=== PATIENT | female | born 1935 | race Caucasian/White ===

== ENCOUNTER → 2016-12-16 | Outpatient (CLI) | payer OTHER ==
[~2016-12-16] VITALS: Ht 152.4 cm; Wt 70.3 kg
[~2016-12-16] MED LIST: ASPIRIN EC81 M1 PO; ATENOLOL 50 MG50 M1 PO; AZOPT OPHTH1 %/10 M1 OP; COQ1050 MG PO; KLOR-CON 1010 MEQ PO; LEVOTHROID88 MCG PO; LEVOTHYROXIN0.088 MG PO; MELOXICAM7.5 MG PO; MULTI-VITAMIN1 EAC5 PO; NORCO 5-325 TA1 EACH PO; PRILOSEC 20 MG20 MG PO; SIMVASTATIN80 MG PO; TENORMIN50 MG PO; TRAMADOL 50 MG50 MG PO; TRAZODONE 150150 M1 PO; TRIAMTERENE-HC1 EAC1 PO; VITAMIN D1000 UNI1 PO; VOLTAREN GEL 1100 G1 TOP; XALATAN2.5 ML OPHTHALMIC; [UNRECOGNIZED DRUG - OTHER]
--- NOTE | ~2016-12-16 | P ---
[facility] [place] [address] PROCEDURE REPORT Name: JAMMIE HERRERA Room #: REG [facility]#: [id number] Admission: 12/16/16 Attend Phys: Alin Thompson Discharge: Date of : 35 Report #: [id number] THIS REPORT FOR: //name// CC: Alin Charles MD DATE OF SERVICE: 12/16/2016 PROCEDURE PERFORMED: Upper endoscopy with biopsies and esophageal dilation. HISTORY OF PRESENT ILLNESS: The patient is an 81-year-old female with a history of gastroesophageal reflux disease, taking Prilosec twice a day. She does report a globus sensation, intermittent nausea and vomiting, intermittent heartburn symptoms. DESCRIPTION OF PROCEDURE: The risks and benefits of the procedure were explained to the patient, those risks including but not limited to bleeding, perforation, the risk of sedation. She understood these risks and gave informed consent. Sedation was given using propofol per anesthesia. Next, using a standard [employer] upper endoscope, the scope was placed in the patient's mouth and advanced under direct vision through the esophagus, stomach and into the second portion of the duodenum. The esophagus was normal throughout. The GE junction was normal. Upon entering the stomach, a small hiatal hernia was noted. Overall, the gastric mucosa was normal. Because of her symptoms, biopsies were obtained to rule out the possibility of H. pylori. The pylorus was normal and patent. The duodenal bulb, first and second portion were all normal. Biopsies were also obtained to rule out the possibility of celiac sprue. The scope was then withdrawn and the procedure terminated. The patient tolerated the procedure well. IMPRESSION: 1. Small hiatal hernia. 2. Otherwise, normal upper endoscopy. RECOMMENDATIONS: 1. Await biopsy results. 2. Continue PPI therapy. 3. We will add Zofran on a p.r.n. basis. Thank you for allowing me to participate in her care. By: 0846 [id number] Alin Garcia MD /nt
--- NOTE | ~2016-12-16 | S ---
[facility] [place] [address] SURGICAL PATH RPT PROCEDURE Name: RANJANA HERRERA [id number] Admission: 12/16/16 Date of : 35 Discharge: Report #: [id number] Path Case #: [id number] PATHOLOGY REPORT COLLECTION DATE: 12/16/2016 RECEIVED DATE: 12/16/2016 SUBMITTING PHYS: Dr. Alin Garcia OTHER PHYS: Dr Charo Charles SPECIMEN(S) RECEIVED: A.Duodenal bx B.Gastric bx * * * * * * * * * * * * FINAL DIAGNOSIS: A. Small bowel, duodenum, biopsy: - No pathologic diagnosis. - Normal villous architecture. B. Stomach, biopsy: - Mild chronic inflammation, non-specific. - No evidence of Helicobacter pylori on immunoperoxidase stain. PATHOLOGIST: Dolly Lyon M.D. REPORT ELECTRONICALLY SIGNED BY: Dolly Lyon M.D. DATE/TIME: 12/20/2016 11:47 * * * * * * * * * * * * GROSS PATHOLOGY: A. Received in formalin labeled "Ranjana Gloria, duodenal, R/O sprue," are three segments of cook soft tissue measuring 0.9 x 0.8 x 0.2 cm in aggregate dimensions and ranging from 0.4 to 0.6 cm in maximum dimension. The specimen is submitted entirely in cassette A1. B. Received in formalin labeled "Ranjana Gloria, gastric biopsy, R/O H. pylori," are three segments of cook soft tissue measuring 0.8 x 0.8 x 0.2 cm in aggregate dimensions and ranging from 0.2 to 0.5 cm in maximum dimension. The specimen is submitted entirely in cassette B1. (CAA; 12/17/2016) CLINICAL HISTORY: Pre-op diagnosis: Abdominal pain, nausea Post-op diagnosis: R/O sprue, R/O H. pylori INITIAL CPT CODE(S): A; [address] [address] SURGICAL PATH RPT PROCEDURE Name: MARIYA HERRERAGEOVANNY Callahan Room #: REG [facility]#: [id number] Admission: 12/16/16 Date of : 35 Discharge: Report #: [id number] Path Case #: [id number] B; [id number], [id number] Professional services performed by [facility] at [address], [place] [address] Technical services performed by [facility] at [address] [place] [address], [facility] [address] [address]. [facility] [address] [place] [id number] PHONE: [phone] DIRECTOR: Gurmeet Olivarez M.D. * * * END OF REPORT * * *
== END | disposition home or self-care (01) ==
LOC: GI 06:57 → EDSTATUS 11:46
DX: K29.50 Unspecified chronic gastritis without bleeding (principal); K44.9 Diaphragmatic hernia without obstruction or gangrene; I10 Essential (primary) hypertension; E78.00 Pure hypercholesterolemia, unspecified; Z98.41 Cataract extraction status, right eye; Z98.42 Cataract extraction status, left eye; Z98.890 Other specified postprocedural states; Z87.891 Personal history of nicotine dependence
CPT/HCPCS: 62110; 62900

== ENCOUNTER 2017-01-06 15:38 | Inpatient (IN) | payer OTHER ==
[~2017-01-06] VITALS: Ht 152.4 cm; Wt 70.3 kg
[2017-01-06 15:45] VITALS: BP 110/71
[2017-01-06 16:52] LABS: HEMATOCRIT 37.7 % (37.0-47.0); HEMOGLOBIN 12.7 gm/dL (12.0-15.0); MANUAL DIFF YES; MCH 28.8 pg (26.0-34.0); MCHC 33.7 g/dL (28.0-37.0); MCV 85.5 fL (80.0-100.0); PLATELET COUNT 177 thou/uL (150-400); RBC 4.41 mil/uL (4.20-5.00); RDW 14.4 % (10.5-14.5); WBC 17.6 thou/uL (4.0-11.0)
[2017-01-06 17:02] LABS: CALCIUM 9.3 mg/dL (8.5-10.1); CREATININE 1.1 mg/dL (0.6-1.0); POTASSIUM 3.9 mmol/L (3.5-5.1)
[2017-01-06 17:07] LABS: ALBUMIN 3.9 g/dL (3.4-5.0); TOTAL BILIRUBIN 0.6 mg/dL (<0.1-1.0); TOTAL PROTEIN 7.4 g/dL (6.4-8.2)
[2017-01-06 17:13] LABS: ABSOLUTE NEUTROPHILS 15.5 thou/uL (1.4-8.2); TOTAL CELL COUNT 100
[2017-01-06 17:43] LABS: URINE BILIRUBIN 1+ (Negative); URINE BLOOD NEGATIVE (Negative); URINE COLOR YELLOW; URINE GLUCOSE-RANDOM* NEGATIVE (Negative); URINE KETONES 1+ (Negative); URINE LEUKOCYTES-REFLEX NEGATIVE (Negative); URINE PROTEIN (DIPSTICK) NEGATIVE (Negative); URINE SPECIFIC GRAVITY 1.025 (1.003-1.035)
[2017-01-06 17:45] LABS: ICTOTEST (BILI CONFIRMATORY) Negative (Negative)
[2017-01-06 17:59] VITALS: BP 122/75
[2017-01-06 18:27] VITALS: BP 106/54
[2017-01-06 20:00] VITALS: BP 100/47
[2017-01-07 04:00] VITALS: BP 87/39
[2017-01-07 04:59] LABS: HEMATOCRIT 33.5 % (37.0-47.0); HEMOGLOBIN 11.1 gm/dL (12.0-15.0); MCH 28.8 pg (26.0-34.0); MCHC 33.2 g/dL (28.0-37.0); MCV 86.6 fL (80.0-100.0); RBC 3.86 mil/uL (4.20-5.00); RDW 14.5 % (10.5-14.5); WBC 14.2 thou/uL (4.0-11.0)
[2017-01-07 05:13] LABS: CALCIUM 8.7 mg/dL (8.5-10.1); CREATININE 1.3 mg/dL (0.6-1.0); POTASSIUM 4.1 mmol/L (3.5-5.1)
[2017-01-07 07:39] VITALS: BP 92/30
[2017-01-07 15:57] VITALS: BP 93/46
[2017-01-07 20:00] VITALS: BP 109/38
[2017-01-08 04:30] VITALS: BP 117/42
[2017-01-08 08:56] LABS: HEMATOCRIT 30.5 % (37.0-47.0); HEMOGLOBIN 10.4 gm/dL (12.0-15.0); MCH 29.1 pg (26.0-34.0); MCV 85.8 fL (80.0-100.0); RBC 3.55 mil/uL (4.20-5.00); RDW 14.1 % (10.5-14.5); WBC 8.8 thou/uL (4.0-11.0)
[2017-01-08 09:01] LABS: CALCIUM 8.3 mg/dL (8.5-10.1); CREATININE 1.2 mg/dL (0.6-1.0); POTASSIUM 3.8 mmol/L (3.5-5.1)
[2017-01-08 09:16] VITALS: BP 122/55
[2017-01-08] MEDS ORDERED: FLAGYL500 MG PO (13:58)
[2017-01-08] MEDS ORDERED: CIPRO500 MG PO (13:58)
[2017-01-08 14:35] VITALS: BP 122/55
== END 2017-01-08 15:12 | disposition home or self-care (01) | DRG 392 ==
LOC: ER 15:38 → 4E 17:29 → EROBS 17:29 → 4E 18:01
PROVIDERS: Hospitalist; Physician Assistant
DX: K57.92 Diverticulitis of intestine, part unspecified, without perforation or abscess without bleeding (principal); I10 Essential (primary) hypertension; E78.5 Hyperlipidemia, unspecified; E03.9 Hypothyroidism, unspecified; K21.9 Gastro-esophageal reflux disease without esophagitis; D72.829 Elevated white blood cell count, unspecified; Z87.891 Personal history of nicotine dependence; Z98.42 Cataract extraction status, left eye; Z98.41 Cataract extraction status, right eye; Z88.0 Allergy status to penicillin; Z91.041 Radiographic dye allergy status; Z79.899 Other long term (current) drug therapy
CPT/HCPCS: 10084

== ENCOUNTER → 2018-01-26 | Outpatient (CLI) | payer OTHER ==
[~2018-01-26] VITALS: Ht 157.5 cm; Wt 71.5 kg
[~2018-01-26] MED LIST changes: +CIPRO500 MG PO; +FLAGYL500 MG PO
--- NOTE | ~2018-01-26 | HPC ---
[facility] [address] [place] [address] PAIN MANAGEMENT CONSULTATION Name: JAMMIE HERRERA [place] Room #: [facility] Erik#: [id number] Admission: 01/26/18 Attend Phys: Daniel Calzada DO Discharge: Date of : 35 Report #: [id number] THIS REPORT FOR: //name// CC: Humza Calzada DATE OF SERVICE: 01/28/2018 The patient is an 82-year-old female. She was prior seen nearly 3 years ago, last visit was 03/2015. She was given epidural injections at that time, both L5-S1 (April 10) and L3-L4 (April 24) with excellent improvement of baseline pain. Pain has gradually begun to recur. She denies antecedent trauma and overuse. States pain returned in low back, left buttock and leg with paresthesia and weakness in the leg. She does note, however, that she has been helping her a great deal, who has become more disabled. He has fallen several times and lifting him up may have exacerbated some of her pain. She does take meloxicam and tramadol through her general practitioner with nominal efficacy. She denies bowel or bladder continence changes, but notes pain does interfere with function. She describes burning and crushing pain. She rates a 4-5 on a VAS, exacerbated with moving, sitting or lying down. REVIEW OF SYSTEMS: Complete review of systems is attached to the chart and gone over with the patient. She has significant visual acuity decrease, hypothyroid, some chronic anxiety for which she takes trazodone, hypertension for which she takes atenolol, multiple eyedrops. Gastroesophageal reflux for which she takes omeprazole, triamterene/hydrochlorothiazide for hypertension, and dyslipidemia for which she takes simvastatin. PHYSICAL EXAMINATION: Reveals a 5 feet 2 inches, 157-pound female, BMI is 28.8 kg/m2. Blood pressure 145/68, pulse 52, respirations 18. Cranial nerves 2-12 are grossly intact. Again, visual acuity is diminished. She is alert and oriented to person, place and time. Thyroid is modestly enlarged. Rises from the chair using the armrest. Gait is antalgic. Lumbar flexion is limited to 80 degrees. Tenderness over the SI joints. KWESI test is negative. Straight leg raise is equivocal bilaterally. Decreased hip flexion strength and lower extremity extension strength bilaterally. Left side maybe a little worse than the right. DIAGNOSTIC STUDIES: Again is somewhat dated. MRI from 03/09/2010 notes grade 1 anterolisthesis at L4-L5, facet degenerative changes and neural foraminal narrowing at L4-L5 at 0.6 cm. Somewhat more recent MRI of the lumbar spine from 2012 again re-demonstrates disk bulging and facet hypertrophy at L3-L4 and L5-S1 with grade 1 anterolisthesis. ASSESSMENT: Symptomatic lumbar radiculopathy by clinical exam and history, who has done well with prior epidural injections. [address] [address] PAIN MANAGEMENT CONSULTATION Name: JAMMIE HERRERA Room #: REG [facility] [place]#: [id number] Admission: 01/26/18 Attend Phys: Daniel Calzada DO Discharge: Date of : 35 Report #: [id number] RECOMMENDATIONS: Discussion with the patient today about therapeutic option. We have elected to seek authorization for lumbar epidural injection at L3-L4. Continue meloxicam, physical therapy. Incidentally, the patient does note that she had 90% relief following the prior injections for greater than a year. <ELECTRONICALLY SIGNED> By: Daniel Calzada DO 01/29/18 0706 1532 2344 Daniel Calzada DO /nt
[2018-01-26 11:01] VITALS: BP 145/68
== END ==
LOC: PAIN 07:14
DX: M54.16 Radiculopathy, lumbar region (principal)

== ENCOUNTER → 2018-02-02 | Outpatient (CLI) | payer OTHER ==
[~2018-02-02] VITALS: Ht 154.9 cm; Wt 71.2 kg
--- NOTE | ~2018-02-02 | HPC ---
[facility] [place] [address] PAIN MANAGEMENT CONSULTATION Name: JAVIERJAMMIE M Room #: REG [facility] Erik#: [id number] Admission: 02/02/18 Attend Phys: Daniel Calzada DO Discharge: Date of : 35 Report #: [id number] THIS REPORT FOR: //name// CC: Humza Calzada DATE OF SERVICE: 02/02/2018 The patient is a delightful 82-year-old female, long treated for symptomatic lumbar radiculopathy secondary to spinal stenosis, last seen in the Pain Clinic on 01/26/2018. She was authorized for epidural injection under fluoroscopy at L3-L4. She returns to the Pain Clinic today. Pain continues to be problematic in bilateral L3 radicular pain pattern. She also has DJD bilateral knees. She wished to proceed with epidural injections we discussed at last visit. ASSESSMENT: Symptomatic lumbar radiculopathy secondary to spinal stenosis. PROCEDURE: Lumbar epidural injection under fluoroscopy. PROCEDURE NOTE: After both written and informed consent to include risk of spinal cord damage, increased pain, weakness and dural puncture, the patient was taken to the fluoroscopy suite, placed in the prone position. After sterile prep and drape, a skin wheal with lidocaine was raised. A 22-gauge epidural Tuohy needle was inserted in the midline at L3-L4 with good loss to resistance. Negative aspiration for cerebrospinal fluid or blood was noted. Then 1 mL of Omnipaque under biplanar fluoroscopy showed good spread within the epidural space. This was followed with 80 mg of triamcinolone plus 1 mL of 1.5% preservative-free Xylocaine, 0.5 mL Xylocaine was then injected to flush the needle; it was removed. The patient was monitored for an appropriate period of time and discharged in good and stable condition. <ELECTRONICALLY SIGNED> By: Daniel Calzada DO 02/05/18 0659 1457 0051 Daniel Calzada DO /nt
[2018-02-02 14:13] VITALS: BP 140/60
== END | disposition home or self-care (01) ==
LOC: PAIN 07:02
DX: M48.061 Spinal stenosis, lumbar region without neurogenic claudication (principal); M54.16 Radiculopathy, lumbar region; K57.92 Diverticulitis of intestine, part unspecified, without perforation or abscess without bleeding; Z88.0 Allergy status to penicillin; Z91.041 Radiographic dye allergy status; Z87.891 Personal history of nicotine dependence; Z79.82 Long term (current) use of aspirin; Z79.899 Other long term (current) drug therapy

== ENCOUNTER → 2018-02-26 | Outpatient (CLI) | payer OTHER ==
[~2018-02-26] VITALS: Ht 157.5 cm; Wt 72.8 kg
--- NOTE | ~2018-02-26 | HPC ---
[facility] [place] [address] PAIN MANAGEMENT CONSULTATION Name: JAMMIE HERRERA [facility] [id number] Admission: 02/26/18 Attend Phys: Alex Varma MD Discharge: Date of : 35 Report #: [id number] THIS REPORT FOR: //name// CC: Humza Varma DATE OF SERVICE: 02/26/2018 Followup visit for lumbar radiculopathy with spondylolisthesis, spinal stenosis and neural foraminal narrowing. HISTORY OF PRESENT ILLNESS: This patient is a patient of Dr. Daniel Calzada. He saw her last on 02/02/2018. He gave her an epidural injection at L2-L3. She had previously received nice response at L4-L5. I believe that his thinking was along the lines of her dermatomal distribution of pain. I have reviewed all of her previous x-rays and the ones that showed the best results were performed at the level noted on her MRI where there is a diffuse annular bulging and bilateral facet and ligamentum flavum hypertrophy causing marked encroachment on the neural foramen at L4-L5. Similar findings are at L5-S1, but not quite as bad. She did not get any relief with the higher injection, so I have offered her one more injection. It is possible that maybe she is at a point where the epidurals are no longer helpful. She is on no blood thinners. She could proceed today with an injection, although we need to do a preauthorization first. She scores her pain as 6-7/10. A brushing, burning, crushing sensation that radiates from her low back down into her buttocks and both thighs. Sensation is intact. She has no focal weakness. She has a slight fall risk, but has not fallen in the last 3 months. She does not receive opioid medications, therefore not on an agreement. BMI is 29.3. Blood pressure 125/52, heart rate 52, respirations 17. Tenderness across the low back, pain with forward flexion and extension of the spine. Positive straight leg raising discomfort noted on the left. IMPRESSION: Chronic low back pain with radiculopathy, left worse than right, but bilateral. RECOMMENDATIONS: Epidural injection at L4-L5 under fluoroscopic guidance. The patient is instructed to continue remaining as active as possible with [address] [address] PAIN MANAGEMENT CONSULTATION Name: JAVIERJAMMIE M Room #: REG CL Erik#: [id number] Admission: 02/26/18 Attend Phys: Alex Varma MD Discharge: Date of : 35 Report #: [id number] stretching and walking. We will see her back in the clinic once we have received preauthorization. By: 1158 1811 Alex Varma MD /nt
[2018-02-26 10:58] VITALS: BP 125/52
== END ==
LOC: PAIN 06:25
DX: M54.16 Radiculopathy, lumbar region (principal); M48.062 Spinal stenosis, lumbar region with neurogenic claudication; M43.16 Spondylolisthesis, lumbar region; G89.29 Other chronic pain

== ENCOUNTER → 2018-03-05 | Outpatient (CLI) | payer OTHER ==
[~2018-03-05] VITALS: Ht 152.4 cm; Wt 72.7 kg
--- NOTE | ~2018-03-05 | HPC ---
[facility] [place] [address] PAIN MANAGEMENT CONSULTATION Name: JAMMIE HERRERA [facility] [id number] Admission: 03/05/18 Attend Phys: Alex Varma MD Discharge: Date of : 35 Report #: [id number] THIS REPORT FOR: //name// CC: Humza Varma DATE OF SERVICE: 03/05/2018 SUBJECTIVE: Followup visit for lumbar radiculopathy. The patient returns today for epidural steroid injection. She was seen on 02/26 and required preauthorization. Plan today was to perform a left paramedian L4-L5 epidural injection as described thoroughly in my note 1 week ago. She is on no blood thinners. We reviewed the procedure, risks and benefits and she is anxious to proceed. IMPRESSION: Chronic low back pain with radiculopathy, bilateral, left worse than right. Lumbar spondylolisthesis and spinal stenosis with neural foraminal narrowing. DESCRIPTION OF PROCEDURE: She was taken to fluoroscopic suite, placed prone, skin prepped with ChloraPrep. Skin anesthetized left of midline at L4-L5. A 20-gauge Tuohy epidural needle advanced at first attempt into the epidural space with loss of resistance. No blood nor CSF aspirated. A 1 mL of Omnipaque injected with good spread of dye observed along the left side of the epidural space and in the lateral recesses followed by 3 mL of 0.5% lidocaine mixed with 80 mg of triamcinolone. She tolerated the procedure well and was observed for 45 minutes and discharged. Follow up as needed. By: 1352 2115 Alex Varma MD /nt
[2018-03-05 13:10] VITALS: BP 134/42
== END | disposition home or self-care (01) ==
LOC: PAIN 06:55
DX: M54.16 Radiculopathy, lumbar region (principal); G89.29 Other chronic pain; M43.16 Spondylolisthesis, lumbar region; M48.061 Spinal stenosis, lumbar region without neurogenic claudication; Z87.891 Personal history of nicotine dependence; Z88.0 Allergy status to penicillin; Z91.041 Radiographic dye allergy status; Z79.82 Long term (current) use of aspirin; Z79.899 Other long term (current) drug therapy

== ENCOUNTER → 2018-12-13 | Outpatient (CLI) | payer OTHER ==
[~2018-12-13] VITALS: Ht 154.9 cm; Wt 70.3 kg
[2018-12-13 07:55] VITALS: BP 155/57
[2018-12-13 08:05] LABS: HEMATOCRIT 35.2 % (37.0-47.0); HEMOGLOBIN 11.7 gm/dL (12.0-15.0); MCHC 33.3 g/dL (28.0-37.0); RBC 3.91 mil/uL (4.20-5.00); RDW 14.4 % (10.5-14.5); WBC 6.9 thou/uL (4.0-11.0)
[2018-12-13 08:11] LABS: CALCIUM 9.7 mg/dL (8.5-10.1); CREATININE 1.3 mg/dL (0.6-1.0); POTASSIUM 4.2 mmol/L (3.5-5.1)
--- NOTE | 2018-12-13 09:11 | CATHLAB ---
[facility] How do you roll? [place] [address] INVASIVE PROCEDURE REPORT Name: JAVIERJAMMIE M Room #: REG CL [facility]#: [id number] ������������� Admission: 12/13/18 ������������� Attend Phys: Garrett Pearson, Discharge: ��� ������������� ��� Date of : 35 Date of Service: 12/13/18 0911 �� Report #: [id number] �������� ��������������������������������������������[id number] THIS REPORT FOR: //name// APPROVED REPORT Study performed: 12/13/2018 07:18:08 Patient Details The patient is a 83 year-old female Event Personnel Garrett Pearson First Mate, Sunni Case RN, Megan Esqueda Jackson, Valisa Monitor Procedures Performed Left Heart Cath w/or w/o Coronaries [id number] [facility] Indication Chest pain Procedure Narrative The Right Groin^ was infiltrated with 1% Lidocaine subcutaneous anesthesia. A PINNACLE 6FR Sheath #[id number] sheath was inserted into the RFA^. Coronary angiography was performed using coronary diagnostic catheters. The right coronary system was accessed and visualized with a JR4 catheter. The left coronary system was accessed and visualized with a JL4 catheter. The left ventricle was accessed and visualized with a PIGTAIL catheter. Closure device was deployed with a Fr MYNXGRIP 6/7F #[id number]. The patient tolerated the procedure well and there were no complications associated with the procedure. There was no hematoma. Intraoperative Conscious Sedation Sedation start time: 802 Case end Time: 818 Fentanyl 50 mcg Versed 1 mg Fluoro Time: 1.03 minutes Dose: DAP 1614.00 cGycm2 189 mGy Contrast Type and Amount: Visipaque 75 ml Diagnostic Cath Left Main Normal left main LAD Minimal 10-20% proximal LAD plaquing Diagonal 1 Large first diagonal branch, angiographically [facility] [address] [place] [address] INVASIVE PROCEDURE REPORT Name: JAVIERJAMMIE [place] Room #: [facility]#: [id number] ������������� Admission: 12/13/18 ������������� Attend Phys: Garrett Pearson, Discharge: ��� ������������� ��� Date of : 35 Date of Service: 12/13/18 0911 �� Report #: [id number] �������� ��������������������������������������������[id number] normal Circumflex Normal, large nondominant circumflex OM1 Single bifurcating marginal branch, angiographically normal Right Coronary Normal dominant right coronary R PDA Normal posterior descending branch RPLV Normal posterolateral branch Left Ventriculography The left ventricle is normal in size with normal contractility. The left ventricular ejection fraction is estimated to be 60-65%. Left ventricular wall motion abnormalities are not present. There is no mitral insufficiency. Hemodynamics The aortic pressure is 165/55 mmHg with a mean of 91 mmHg. The left ventricular pressure is 155/3 mmHg with a mean of mmHg. The left ventricular end diastolic pressure is 20 mmHg. Conclusion 1. Normal global and regional left ventricular systolic function 2. Normal left main 3. Minimal proximal LAD plaquing otherwise normal coronary vasculature. Right coronary dominant circulation. ��������������������������������������������� <ELECTRONICALLY SIGNED> ���������������������������������������� By: Garrett Pearson MD, FACC ��������������������������������������������� 12/13/18910 0 0 Garrett Pearson MD, FACC /INF
[2018-12-13 09:45] VITALS: BP 160/80
[2018-12-13 10:45] VITALS: BP 143/51
--- NOTE | 2018-12-13 17:02 | EKG ---
[address] [address] ELECTROCARDIOGRAM REPORT Name: JAVIERJAMMIE Room #: [facility]#: [id number] ������������������ Admission: 12/13/18 ������������������ Attend Phys: Garrett Pearson MD, Discharge: ������������������ Date of : 35 Report #: [id number] ����������������������������������������������������������������� [id number] THIS REPORT FOR: //name// [facility] Test Date: 2018-12-13 Test Time: 07:44:14 Pat Name: JAMMIE HERRERA Department: Room: Gender: F Day Care Home Provider: Diana BEARD : 1935 Requested By: Garrett Pearson Order Number: [id number] MD: Jose Leija Measurements Intervals [place] Rate: 53 P: 58 VT: 191 QRS: 17 QRSD: 99 T: 32 QT: 443 QTc: 416 Interpretive Statements Sinus rhythm No previous ECG available for comparison Electronically Signed On 12-13-2018 17:02:00 CDT by Jose Leija [email or web address] ��������������������������������������������� <ELECTRONICALLY SIGNED> ���������������������������������������� By: Jose Leija MD ��������������������������������������������� 12/13/18 1702 0744 0744 Jose Leija MD /THANG
== END | disposition home or self-care (01) ==
LOC: CATH 06:48
PROVIDERS: Internal Medicine
DX: I25.10 Atherosclerotic heart disease of native coronary artery without angina pectoris (principal); I10 Essential (primary) hypertension; E78.00 Pure hypercholesterolemia, unspecified; E03.9 Hypothyroidism, unspecified; K21.9 Gastro-esophageal reflux disease without esophagitis; Z98.41 Cataract extraction status, right eye; Z98.42 Cataract extraction status, left eye; Z98.890 Other specified postprocedural states; Z79.899 Other long term (current) drug therapy; Z87.891 Personal history of nicotine dependence; Z88.0 Allergy status to penicillin; Z91.041 Radiographic dye allergy status; Z79.82 Long term (current) use of aspirin

== ENCOUNTER → 2018-12-17 | Outpatient (CLI) | payer OTHER | LOC: ULTRA 13:56 | DX: M79.89 Other specified soft tissue disorders (principal); M79.604 Pain in right leg; L53.9 Erythematous condition, unspecified ==

== ENCOUNTER 2019-09-01 12:43 | Inpatient (IN) | payer OTHER ==
[~2019-09-01] VITALS: Ht 154.9 cm; Wt 84.9 kg
[2019-09-01 12:44] VITALS: BP 143/39
[2019-09-01] MEDS ORDERED: LEVO-T100 MCG PO (13:10)
[2019-09-01] MEDS ORDERED: TIMOLOL MALEATE5 M2 OPHTHALMIC (13:11)
[2019-09-01] MEDS ORDERED: SPIRONOLACTONE25 MG PO (13:11)
[2019-09-01] MEDS ORDERED: AZELASTINE205.5 MCG/ NARES (13:12)
[2019-09-01 13:38] LABS: ABSOLUTE NEUTROPHILS 10.3 thou/uL (1.4-8.2); BASOPHILS 0.3 % (0.0-2.0); EOSINOPHILS 0.3 % (0.0-3.0); HEMATOCRIT 36.7 % (37.0-47.0); HEMOGLOBIN 11.9 gm/dL (12.0-15.0); MCH 28.3 pg (26.0-34.0); MCHC 32.3 g/dL (28.0-37.0); MCV 87.4 fL (80.0-100.0); MONOCYTES 6.2 % (1.0-8.0); PLATELET COUNT 191 thou/uL (150-400); POLYS 86.2 % (36.0-66.0); RDW 14.1 % (10.5-14.5)
[2019-09-01 13:48] LABS: CALCIUM 9.2 mg/dL (8.5-10.1); CREATININE 1.1 mg/dL (0.6-1.0); POTASSIUM 3.6 mmol/L (3.5-5.1)
[2019-09-01 13:54] LABS: ALBUMIN 3.5 g/dL (3.4-5.0); TOTAL BILIRUBIN 0.6 mg/dL (<0.1-1.0); TOTAL PROTEIN 7.1 g/dL (6.4-8.2)
[2019-09-01] MEDS ORDERED: SENNA PLUS TAB1 EACH PO (14:57)
[2019-09-01] MEDS ORDERED: MIRALAX17 GM PO (14:57)
[2019-09-01 20:18] VITALS: BP 141/48
[2019-09-01 20:33] VITALS: BP 141/48
[2019-09-01 20:45] VITALS: BP 136/59
--- NOTE | 2019-09-01 22:53 | NUR ---
PATIENT ARRIVED FROM ED ON CART WITH DE ICER FINISHER. WALKED FROM CART TO BED WITH ONE ASSIST. IVF INFUSING W/O COMPLICATION. ALERT AND ORIENTED X4. C/O STOMACH PAIN. BSC WITH NO RESULTS - GIVEN MAG CITRATE IN ED. SON (CHACE) AT BEDSIDE DURING TRANSFER. PATIENT RESTING, WILL MONITOR.
--- NOTE | 2019-09-02 04:45 | NUR ---
PATIENT REMAINS ALERT AND ORIENTED X4. UP WITH ONE ASSIST TO THE BSC, ONLY SMEAR OF BM NOTED SINCE MAG CITRATE GIVEN IN ED. C/O STOMACH CRAMPS AND GIVEN PRN TRAMADOL. ALSO NAUSEATED WITH NO EMESIS - GIVEN ZOFRAN WITH GOOD RESULTS. IVF INFUSING W/O COMPLICATION. PATIENT HAS NOT SLEPT WELL. A YEAR AGO THIS MONTH HER . UP TO BSC SEVERAL TIMES DURING THE NIGHT TO VOID. BE AWARE PATIENT IS LEGALLY BLIND. PLEASANT AND COOPERATIVE, RESTING QUIETLY WITH SCD'S IN PLACE. WILL MONITOR.
[2019-09-02 05:25] LABS: HEMATOCRIT 36.1 % (37.0-47.0); HEMOGLOBIN 11.7 gm/dL (12.0-15.0); MCH 28.4 pg (26.0-34.0); MCHC 32.4 g/dL (28.0-37.0); MCV 87.7 fL (80.0-100.0); RBC 4.12 mil/uL (4.20-5.00); RDW 14.3 % (10.5-14.5); WBC 17.7 thou/uL (4.0-11.0)
[2019-09-02 05:37] LABS: CALCIUM 8.9 mg/dL (8.5-10.1); CREATININE 0.9 mg/dL (0.6-1.0); POTASSIUM 3.5 mmol/L (3.5-5.1)
[2019-09-02 07:22] VITALS: BP 133/53
[2019-09-02 14:47] VITALS: BP 131/47
[2019-09-02 15:43] LABS: URINE BLOOD NEGATIVE (Negative); URINE CLARITY CLEAR; URINE COLOR YELLOW; URINE GLUCOSE-RANDOM* NEGATIVE (Negative); URINE KETONES 1+ (Negative); URINE LEUKOCYTES-REFLEX NEGATIVE (Negative); URINE NITRITE-REFLEX NEGATIVE (Negative); URINE PROTEIN (DIPSTICK) TRACE (Negative); URINE SPECIFIC GRAVITY >= 1.030 (1.005-1.035)
[2019-09-02 15:45] LABS: ICTOTEST (BILI CONFIRMATORY) Negative (Negative); URINE BILIRUBIN NEGATIVE (Negative)
[2019-09-02 19:30] VITALS: BP 115/51
--- NOTE | 2019-09-02 19:51 | NUR ---
ASSUMED CARE OF THE PATIENT AT 0715, PATIENT ALERT AND ORIENTED X 4. UP WITH SBA TO BATHROOM. C/O NAUEA AND PAIN THIS SHIFT. ZOFRAN IV GIVEN AND CALLED DR VILLANUEVA FOR PAIN MED ORDER, RECEIVED ORDER FOR HYDROCODONE 1 TABLET, GIVEN X 1 THIS SHIFT. LEFT AC IV WITH NS AT 125CC/HR. PATIENT DOWN FOR CT OF ABDOMEN/PELVIS. GI CONSULTED, DIVERTICULITIS, STARTED ON IV ANTIBIOTICS. FAMILY HAS BEEEN AT BEDSIDE MOST OF THE DAY. WILL CONTINUE TO MONITOR.
--- NOTE | 2019-09-03 04:16 | NUR ---
ASSUMED CARE OF PATIENT AT APPROX. 1930. ASSESSMENT CHARTED. MEDICTAIONS GIVEN PER SEP. PATIENT REMAINS A&OX4, VSS; SYSTOLIC BP WENT DOWN D/T PT LYING SUPINE, DIASTOLIC REMAINING WNL. PATIENT C/O PAIN AT 5/10 IN ABDOMINAL AREA. PRN PAIN MEDICATION ADMINISTERED AND UPON REASSESSMENT PATIENT EXPRESSED PAIN RELIEF OF 3/10. PATIENT GETS UP TO THE BATHROOM X1 ASSIST. PATIENT TOLERATES WELL BUT REQUIRES EXTRA TIME. PATIENT STILL HAS NOT HAD A REGULAR BM BUT STARTED PASSING SMALL BITS AND SMEARS SINCE BEING ADMITTED. PATIENT COMPLAINED ABPUT SCD'S MAKING HER RESTLESS. PATIENT EDUCATED ON IMPORTANCE OF VTE PREVENTION BUT DECIDED TO LEAVE THEM OFF TONIGHT. THIS NIGHT HYDROCODONE SEEMS TO WORK BETTER AT PAIN CONTROL THAN TRAMADOL. PATIENT TURNS SELF IN BED. FALL PRECAUTIONS IN PLACE. PATIENT CALLS OUT APPROPRIATELY. PLAN IS TO RECIEVE A PARACENTESIS TODAY 09/03/19. PATIENT IS NPO FOR PROCEDURE. WILL CONTINUE TO MONITOR AND FOLLOW PLAN OF CARE
[2019-09-03 08:15] LABS: INR 1.2; PROTIME 12.3 Seconds (9.3-11.4)
[2019-09-03 09:30] VITALS: BP 116/59
--- NOTE | 2019-09-03 10:00 | NUR ---
ASSUMED CARE OF PT THIS AM. PT IS AOX4, VSS, NO C/O PAIN. PT IS TOLERATING CLEAR LIQUID DIET WITHOUT NAUSEA. PT HAD A SMALL BM IN BATHROOM. PT AMBULATING WITH STANDBY ASSSIST. IV PATENT IN L AC WITH FLUIDS RUNNING. PT TRANSPORTED DOWN FOR PARACENTESIS AT THIS TIME.
--- NOTE | 2019-09-03 13:14 | NUR ---
INITIAL ASSESSMENT: SW reviewed chart and spoke with nursing. Pt was admitted from home due to constipation/abdominal pain. Pt to have a paracentesis today. SW met with pt at bedside. Introduced role of SW. Pt is alert/orientated and reports she lives alone in an [place] apt at [facility]. Pt is legally blind. Pt uses a cane for ambulation. No steps to enter the building and building has elevator access. Pt's PCP is Dr. Stone. Plan is for pt to return to [place] when medically stable. SW is following to assist as needed with discharge planning.
[2019-09-03 19:09] VITALS: BP 102/41
--- NOTE | 2019-09-04 04:10 | NUR ---
Assumed pt care at 1900. Pt is A/OX4,pleasant, VSS. C/o cramping to abd as well as nausea,medicated for nausea per request with some relief reported.Pt having episodes of loose/formed BM's through the night and frustrated about it. PO intake encouraged,IVF infusing. Pt's IV was leaking,reinserted after 5 attempts by other nurse on Left hand and fluids initiated. Fall precautions in place,calls approp. Resting quietly w/o any distress at this time,will continue to monitor pt.
[2019-09-04 07:25] VITALS: BP 124/50
--- NOTE | 2019-09-04 10:11 | NUR ---
SW reviewed chart and spoke with nursing and attending physician. PT/OT ordered today to evaluate pt for discharge needs. Pt is from [facility]. SW is following to assist as needed with discharge planning.
[2019-09-04 15:02] VITALS: BP 108/39
--- NOTE | 2019-09-04 18:47 | NUR ---
PATIENT ALERT AND ORIENTED WITH FAMILY AT BEDSIDE THROUGHOUT THE DAY. CONTINUES TO EXPERIENCE ABDOMINAL CRAMPING ESPECIALLY WHILE SHE HAD SEVERAL BM'S TODAY THAT WERE BROWN AND SOFT. PATIENT INDICATED MORPHINE IS HELPING WITH PAIN AND IS ASKING WHEN SHE CAN PROGRESS TO SOLID FOODS.
[2019-09-04 19:42] VITALS: BP 118/55
--- NOTE | 2019-09-05 05:46 | NUR ---
Assumed pt care at 1900. Pt is A/OX4, VSS. No c/o dizzyness this shift. C/o abd cramping and some nausea but declined taking any medications for it stating it's tolerable,pt afraid of eating since the pain might come back. Clear liduids offered but she declined as well. IVF infusing via Left hand IV w/o problems. Up with SBA to BR, has had a few soft BM's at night,sample sent for cdiff. Fall precautions in place, calls approp. Resting quietly at this time,will continue to monitor pt.
[2019-09-05 09:57] VITALS: BP 121/40
[2019-09-05 13:41] LABS: HEMATOCRIT 34.1 % (37.0-47.0); MCH 28.3 pg (26.0-34.0); MCHC 32.3 g/dL (28.0-37.0); MCV 87.8 fL (80.0-100.0); RBC 3.89 mil/uL (4.20-5.00); RDW 14.5 % (10.5-14.5); WBC 14.1 thou/uL (4.0-11.0)
--- NOTE | 2019-09-05 16:38 | NUR ---
SW reviewed chart and spoke with nursing and attending physician. Pt is slowly progressing towards goals for discharge. Recommendation made for pt to go to post-acute placement. SW met with pt at bedside to provide update. Pt is agreeable with post-acute placement. Pt states that her was at [facility] in the past. She would like to consider alternate options. SW left list of in-network SNFs for pt to review. SW is following to assist as needed with discharge planning.
--- NOTE | 2019-09-05 20:08 | NUR ---
ASSUMED PATIENT CARE AT 0700. PATIENT IS A&OX4. PATIENT IS DOING WELL AMBULATING WITH A NURSE ASSIST, WORKED WITH PT TODAY AND PLAN TO D/C TO SKILLED TOMORROW. THROUGHOUT THE DAY THE PATIENT C/O PAIN AND CRAMPING IN THE ABDOMEN THAT ONLY GOT WORSE OVER TIME. PRN PAIN MEDS GIVEN BUT NOT MUCH RELIEF. SPOKE WITH PHYSICIAN AND NEW MEDS WERE ORDERED. PATIENT HAS HAD SEVERAL BM THAT ARE MOSTLY LOOSE WITH LOTS OF PASSING GAS. DIET WAS CHANGED TODAY TO FULL LIQUIDS BUT THE PATIENT HASN'T BEEN ABLE TO EAT MUCH, SHE FEARS IT WILL BOTHER HER STOMACH AND THEN SHE DEVELOPED THE PAIN AND REFUSED TO EAT DINNER. PATIENT WILL CALL OUT FOR ASSISTANCE, FALL PRECAUTIONS IN PLACE, CALL LIGHT WITHIN REACH.
[2019-09-05 20:12] VITALS: BP 139/53
[2019-09-06] VITALS (10 sets, daily range): BP systolic 95–132; BP diastolic 45–67
--- NOTE | 2019-09-06 03:24 | NUR ---
ASSUMED CARE OF PT AT 1900HRS. PT IS AOX4 AND LETS NEEDS BE KNOWN. FALL PRECAUTION INPLACE. ABX TREATMENT CONTINUED. PT REPORTED SOME PAINAND WAS TREATED WITH PRN PAIN MEDS. PT WAS ABLE TO GET COMGORTABLE AND SLEEP PART OF THE SHIFT. VSS AND NO S/S OF ACUTE DISTRESS. WILL CONTINUE TO MONITOR.
--- NOTE | 2019-09-06 13:16 | NUR ---
IDA reviewed chart and spoke with nursing and attending physician. Pt with worsening diverticulitis. Surgery consulted. NG tube placed. Pt to go to surgery today. No weekend discharge planned. IDA is following to assist as needed with discharge planning.
--- NOTE | 2019-09-06 14:37 | NUR ---
PT TRANSPORTED TO SURGERY. THIS NURSE GAVE REPORT TO PACU NURSE. PT VSS, NG TUBE IN PLACE, IV IN R FA S/L. FAMILY FOLLOWED PT DOWN TO SURGICAL UNIT.
[2019-09-06 14:59] LABS: HEMATOCRIT 37.5 % (37.0-47.0); HEMOGLOBIN 12.1 gm/dL (12.0-15.0); MCH 27.9 pg (26.0-34.0); MCHC 32.2 g/dL (28.0-37.0); MCV 86.5 fL (80.0-100.0); RBC 4.34 mil/uL (4.20-5.00); RDW 14.6 % (10.5-14.5); WBC 4.6 thou/uL (4.0-11.0)
[2019-09-06 15:07] LABS: CALCIUM 7.6 mg/dL (8.5-10.1); CREATININE 0.9 mg/dL (0.6-1.0); POTASSIUM 3.4 mmol/L (3.5-5.1)
[2019-09-06 15:11] LABS: MAGNESIUM 1.3 mg/dL (1.8-2.4); PHOSPHORUS 1.6 mg/dL (2.5-4.9)
[2019-09-07] VITALS: BP 95/46
[2019-09-07 04:05] VITALS: BP 109/55
--- NOTE | 2019-09-07 04:53 | NUR ---
ASSUMED PATIENT CARE AT APPROXIMATELY 1845 FROM POST OP. VITAL SIGNS MOSTLY STABLE WITH PATIENT HAVING NO COMPLAINTS OF NAUSEA. PATIENT DID COMPLAIN OF ABDOMINAL PAIN AND WAS TREATED APPROPRIATELY THROUGH MEDICATION AND REPOSITIONING. ALERT AND ORIENTED, PATIENT IS ABLE TO CALL APPROPRIATELY FOR NEEDS. SURGICAL SITE CLEAN DRY AND INTACT WITH NEW COLOSTOMY WITH NO OUTPUT. ANNA DRAIN HAS PRODUCED MODERATE TO LARGE AMOUNT OF SEROSANGUINOUS OUTPUT. CONTINUE PLAN OF CARE.
[2019-09-07 05:28] LABS: HEMATOCRIT 36.7 % (37.0-47.0); HEMOGLOBIN 11.9 gm/dL (12.0-15.0); MCH 28.4 pg (26.0-34.0); MCHC 32.5 g/dL (28.0-37.0); MCV 87.2 fL (80.0-100.0); RBC 4.2 mil/uL (4.20-5.00); RDW 14.9 % (10.5-14.5); WBC 10.4 thou/uL (4.0-11.0)
[2019-09-07 05:56] LABS: ALBUMIN 1.5 g/dL (3.4-5.0); CALCIUM 6.8 mg/dL (8.5-10.1); MAGNESIUM 1.8 mg/dL (1.8-2.4); POTASSIUM 3.7 mmol/L (3.5-5.1)
[2019-09-07 07:16] VITALS: BP 116/64
[2019-09-07 11:47] VITALS: BP 110/66
[2019-09-07 15:44] VITALS: BP 97/59
[2019-09-07 20:17] VITALS: BP 106/60
[2019-09-08 05:20] VITALS: BP 104/48
[2019-09-08 05:31] LABS: HEMATOCRIT 33.6 % (37.0-47.0); HEMOGLOBIN 10.7 gm/dL (12.0-15.0); MCH 27.6 pg (26.0-34.0); MCHC 31.7 g/dL (28.0-37.0); MCV 87.2 fL (80.0-100.0); PLATELET COUNT 263 thou/uL (150-400); RBC 3.86 mil/uL (4.20-5.00); RDW 14.9 % (10.5-14.5); WBC 18.6 thou/uL (4.0-11.0)
[2019-09-08 05:53] LABS: ALBUMIN 1.6 g/dL (3.4-5.0); CALCIUM 7.6 mg/dL (8.5-10.1); CREATININE 0.9 mg/dL (0.6-1.0); MAGNESIUM 2.1 mg/dL (1.8-2.4); PHOSPHORUS 2.2 mg/dL (2.5-4.9); POTASSIUM 3.9 mmol/L (3.5-5.1); TOTAL BILIRUBIN 0.4 mg/dL (<0.1-1.0); TOTAL PROTEIN 4.3 g/dL (6.4-8.2)
[2019-09-08 06:39] LABS: ABSOLUTE NEUTROPHILS 15.6 thou/uL (1.4-8.2); METAMYELOCYTES 1 %; PLATELET ESTIMATE NORMAL
[2019-09-08 07:01] VITALS: BP 115/59
--- NOTE | 2019-09-08 07:23 | NUR ---
PATIENT IS PROGRESSING IN HER CARE PLAN. VITAL SIGNS STABLE WITH PATIENT HAVING NO COMPLAINTS OF NAUSEA. PATIENT DID COMPLAIN OF PAIN IN HER ABDOMINAL SURGICAL SITE WHICH REQUIRED MEDICATION. BREATHING STABLE ON LOW LEVEL OXYGEN EVIDENCED BY ASSESSMENT AND SPOT OXYGENATION CHECKS. FULLY ORIENTED THROUGHOUT SHIFT, PATIENT IS ABLE TO CALL APPROPRIATELY FOR NEEDS. SURGICAL SITE INTACT. PATIENT TOLERATED CLEAR LIQUID DIET WELL. CONTINUE PLAN OF CARE.
[2019-09-08 11:35] VITALS: BP 114/52
--- NOTE | 2019-09-08 12:26 | NUR ---
ASSESS PT WITH DR. BRADFORD AND INSTRUCTED ON ADJUSMENT TO MEDICATIONS.
[2019-09-08 15:36] LABS: URINE BILIRUBIN NEGATIVE (Negative); URINE BLOOD NEGATIVE (Negative); URINE CLARITY CLEAR; URINE COLOR YELLOW; URINE GLUCOSE-RANDOM* NEGATIVE (Negative); URINE KETONES TRACE (Negative); URINE LEUKOCYTES-REFLEX NEGATIVE (Negative); URINE NITRITE-REFLEX NEGATIVE (Negative); URINE PROTEIN (DIPSTICK) TRACE (Negative); URINE SPECIFIC GRAVITY >= 1.030 (1.005-1.035); URINE UROBILINOGEN 0.2 E.U./dl (0.2-1.0)
[2019-09-08 15:45] VITALS: BP 111/58
--- NOTE | 2019-09-08 17:00 | NUR ---
PT UP IN CHAIR TODAY.
[2019-09-08 20:45] VITALS: BP 115/57
[2019-09-09 05:15] VITALS: BP 118/57
[2019-09-09 06:21] LABS: HEMATOCRIT 33.7 % (37.0-47.0); HEMOGLOBIN 10.9 gm/dL (12.0-15.0); MCH 28.1 pg (26.0-34.0); MCHC 32.4 g/dL (28.0-37.0); MCV 86.7 fL (80.0-100.0); PLATELET COUNT 303 thou/uL (150-400); RBC 3.89 mil/uL (4.20-5.00); WBC 22.5 thou/uL (4.0-11.0)
[2019-09-09 06:43] LABS: CALCIUM 7.5 mg/dL (8.5-10.1); CREATININE 0.9 mg/dL (0.6-1.0); MAGNESIUM 1.6 mg/dL (1.8-2.4); PHOSPHORUS 1.7 mg/dL (2.5-4.9); POTASSIUM 3.4 mmol/L (3.5-5.1)
[2019-09-09 08:08] VITALS: BP 106/60
[2019-09-09 08:54] LABS: ABSOLUTE NEUTROPHILS 18.2 thou/uL (1.4-8.2); METAMYELOCYTES 1 %; NUCLEATED RBCS 1 /100WBC; PLATELET ESTIMATE NORMAL
--- NOTE | 2019-09-09 09:45 | NUR ---
PATIENT IS PROGRESSING SLOWLY IN HER CARE PLAN. VITAL SIGNS STABLE. PATIENT DID HAVE COMPLAINTS OF PAIN AND NAUSEA WHICH WERE TREATED APPROPRIATELY THROUGH MEDICATIONS AND NON PHARMACOLOGICAL INTERVENTIONS. FULLY ALERT AND ORIENTED, PATIENT IS ABLE TO CALL FOR NEEDS APPROPRIATELY. BREATHING STABLE ON LOW LEVEL OXYGEN EVIDENCED BY ASSESSMENT AND SPOT OXYGENATION CHECKS. SURGICAL SITE CLEAN, DRY, AND INTACT. ANNA DRAIN IN PLACE WITH AROUND 40 CC'S OF DRAINAGE. CONTINUE PLAN OF CARE.
--- NOTE | 2019-09-09 11:20 | NUR ---
OSTOMY CARE NOTE POUCH INTACT NO LEAKAGE, SCANT BROWNISH LIQ STOOL, SONS AT BS, PT ALERT, COOPERATIVE, STATES DUE TO POOR VISION UNSURE SHE WILL BE ABLE TO CHANGE APPLIANCE, HOPEFULLY WILL BE ABLE TO EMPTY, STOMA PINK VIABLE TEACHING MATERIAL AND SUPPLIES LEFT AT BS, PT AND FAMILY VERY RECEPTIVE TO OSTOMY EDUCATION, WILL CONT TO FOLLOW RECOMMENDATIONS, CHANGE POUCH Q 3-5 DAYS AND PRN, 2 PIECE CARLIE CUT TO FIT. HAVE PT PARTICIPATE IN OSTOMY CARE SHIRLENE LEARNING HOW TO EMPTY POUCH MARKETING MGR INFORMED
--- NOTE | 2019-09-09 14:51 | NUR ---
SW reviewed chart and spoke with nursing. Pt was transferred to from [facility] following surgery on Monday. Pt with new ostomy. Pt's diet slowly being advanced. IDA met with pt at bedside to discuss post-acute placement. Recommendation for SNF level of care at time of discharge. Pt states she has been to [facility] in the past and is agreeable with referral to [facility] for review. SW explained need for insurance authorization. Pt verbalized understanding. vacation planner to fax referral to [facility] SN[facility] for review. IDA is following to assist as needed with discharge planning.
--- NOTE | 2019-09-09 15:51 | NUR ---
DISCHARGE PLANNING. POST ACUTE RECOMMENDED AT DISCHARGE. PATIENT REFERRAL FAXED TO [facility] [place] PER REQUEST. DISCHARGE DATE HAS NOT BEEN ESTABLISHED AT THIS TIME. CALL PLACED TO [facility], [facility] ADMISSIONS, TO NOTIFY. REFERRAL REVIEW IN PROCESS, [facility] TO NOTIFY CM ONCE REVIEW HAS BEEN COMPLETED.
[2019-09-09 17:06] VITALS: BP 120/48
[2019-09-09 19:22] VITALS: BP 107/52
--- NOTE | 2019-09-09 20:48 | NUR ---
PATIENT ALERT AND ORIENTED AND TOLERATING CLEAR LIQUID DIET WITH FAMILY AT BEDSIDE. PATIENT GIVEN PAIN MEDS THIS AM BUT REFUSED PAIN MEDS THIS EVENING. SCHULER CATHETER REMOVED THIS AFTERNOON AND PATIENT IS EXPERIENCING SOME URINARY INCONTIENCE. PATIENT OF ROOM AIR. NOTIFIED PRIMARY MD OF ELEVATED WBC'S THIS AM AND NO NEW ORDERS SINCE PATIENT IS ALREADY ON SEVERAL ANTIBIOTICS.
[2019-09-10 04:41] VITALS: BP 121/61
--- NOTE | 2019-09-10 06:22 | NUR ---
PT IS LEGALLY BLIND AND A/0X4. VSS AND TELE SHOWS SR. FOLLOWING POC WITH IVF GTT AT 75ML/HR AND IVPB ANTIBIOTICS. PT REQUESTED PAIN MEDICATION 2X OVER SHIFT. DURING 1899 ASSESSMENT NOTICED ANNA BULB WAS MISSING FROM ABDOMINAL DRAIN. CALLED OUT FOR IT, LOOKED IN DIRTY LAUNDRY, AND WASTE BASKETS AND IT WAS LOST. LOCATED ANOTHER ANNA BULB FROM ER AND ATTACHED WITH 40ML OUT. COLLECTED FLUID AND SENT TO LAB PER ORDERS. HOURLY ROUNDING.
[2019-09-10 08:16] VITALS: BP 123/70
--- NOTE | 2019-09-10 13:34 | NUR ---
CONSULTED TO PLACE A PICC FOR TPN. ORDER AND CONSENT NOTED. THE PROCEDURE WELL BENIFITS AND RISKS WERE DISCUSSED. THE RIGHT UPPER ARM BASILIC WAS WIDLEY PATENT. A #4 F DOUBLE LUMEN POWER PICC WAS PLACED AFTER A BEDSIDE TIMEOUT WAS COMPLETED. LINE WAS TRIMMED TO 42CM AND ADVANCED WITHOUT DIFFICULTY. A STAT CHEST XRAY WAS ORDERED TO CONFIRM PLACEMENT.
--- NOTE | 2019-09-10 15:21 | NUR ---
IDA reviewed chart and spoke with nursing and attending physician. Pt is not progressing towards goals for discharge. Pt is now NPO and had PICC line placed today. Pt to be started on TPN. [facility] able [facility] accept pt when medically stable. Will need insurance authorization. IDA spoke with pt's son, Elver, via phone to provide update and discuss discharge plan. Popeye confirmed SNF plane of [facility]. IDA is following to assist as needed with discharge planning.
[2019-09-10 15:55] LABS: HEMATOCRIT 30.9 % (37.0-47.0); MCH 28.1 pg (26.0-34.0); MCHC 32.5 g/dL (28.0-37.0); MCV 86.6 fL (80.0-100.0); RBC 3.57 mil/uL (4.20-5.00); WBC 23.4 thou/uL (4.0-11.0)
[2019-09-10 16:06] LABS: ALBUMIN 1.4 g/dL (3.4-5.0); CALCIUM 7.5 mg/dL (8.5-10.1); CREATININE 0.8 mg/dL (0.6-1.0); MAGNESIUM 1.6 mg/dL (1.8-2.4); PHOSPHORUS 2.5 mg/dL (2.5-4.9); POTASSIUM 3.3 mmol/L (3.5-5.1)
[2019-09-10 16:55] VITALS: BP 95/53
[2019-09-10 19:54] VITALS: BP 115/51
[2019-09-11 04:13] VITALS: BP 116/51
[2019-09-11 06:33] LABS: ALBUMIN 1.4 g/dL (3.4-5.0); CALCIUM 7.9 mg/dL (8.5-10.1); CREATININE 0.7 mg/dL (0.6-1.0); MAGNESIUM 1.9 mg/dL (1.8-2.4); PHOSPHORUS 2.6 mg/dL (2.5-4.9); POTASSIUM 3.1 mmol/L (3.5-5.1); TOTAL BILIRUBIN 0.3 mg/dL (<0.1-1.0); TOTAL PROTEIN 4.5 g/dL (6.4-8.2)
[2019-09-11 07:42] VITALS: BP 93/44
--- NOTE | 2019-09-11 08:24 | NUR ---
Recommend tpn goal rate of 70ml/hr
[2019-09-11 08:53] LABS: HEMATOCRIT 30.1 % (37.0-47.0); HEMOGLOBIN 9.7 gm/dL (12.0-15.0); MCHC 32.1 g/dL (28.0-37.0); MCV 87.2 fL (80.0-100.0); RBC 3.45 mil/uL (4.20-5.00); RDW 15.4 % (10.5-14.5); WBC 21.1 thou/uL (4.0-11.0)
--- NOTE | 2019-09-11 11:53 | NUR ---
OSTOMY CARE daughter Iesha at bs, willing to learn ostomy care, pt alert, cooperative but to low vision unable to see stoma well enough to change pouch at this time, both receptive to education, stoma pink viable slightly budded, scant liq brown effluent present, peristomal skin intact, midline abd suture line intact, anai, well approximated, mesh covering present, new pouch catrina 2 piece w/ adapt ring applied, supplies and info at bs, will cont to follow recommendations change pouch q 3-5days and prn, catrina 2 piece system w/ adapt ring, staff services manager informed
--- NOTE | 2019-09-11 12:12 | NUR ---
IDA reviewed chart and spoke with nursing and attending physician. Pt started on TPN yesterday. IDA updated [facility] coordinator and liaison. Will need insurance authorization when medically stable for discharge. IDA is following to assist as needed with discharge planning.
[2019-09-11 15:03] VITALS: BP 127/58
[2019-09-11 20:30] VITALS: BP 148/70
[2019-09-12 04:37] VITALS: BP 139/69
--- NOTE | 2019-09-12 07:42 | NUR ---
ASSUMED CARE AT 1900. PT REPORTS MODERATE ABD PAIN; GIVEN BENTYL AND SCHEDULED TYLENOL. PT C/O FEELING RESTLESS OVERNIGHT; GAVE DOSE OF ATIVAN WHICH HELPED BRIEFLY, GAVE A DOSE OF OXY WHICH HELPED PT CALM DOWN AND REST OVERNIGHT. DENIED NAUSEA, HAS ACTIVE BOWEL SOUNDS BUT DID NOT PASS ANY STOOL THROUGH THE COLOSTOMY. HAD LARGE URINE OUTPUT, REQUIRED MULTIPLE CHANGES D/T EXT CATH NOT FITTING WELL PT WAS VERY RESTLESS. TPN AND IV FLUIDS/ABX INFUSING OVERNIGHT. NO OTHER CONCERNS, SHIFT REPORT GIVEN AT 0700.
[2019-09-12 07:59] VITALS: BP 141/70
[2019-09-12 09:11] LABS: CALCIUM 7.7 mg/dL (8.5-10.1); CREATININE 0.7 mg/dL (0.6-1.0); MAGNESIUM 1.7 mg/dL (1.8-2.4); PHOSPHORUS 2.5 mg/dL (2.5-4.9); POTASSIUM 3.6 mmol/L (3.5-5.1)
[2019-09-12 21:15] VITALS: BP 121/58
[2019-09-13 04:00] VITALS: BP 115/56
[2019-09-13 05:06] LABS: HEMATOCRIT 29.8 % (37.0-47.0); HEMOGLOBIN 9.7 gm/dL (12.0-15.0); MCH 27.9 pg (26.0-34.0); MCHC 32.5 g/dL (28.0-37.0); RBC 3.47 mil/uL (4.20-5.00); RDW 15.3 % (10.5-14.5); WBC 16.7 thou/uL (4.0-11.0)
[2019-09-13 05:29] LABS: CALCIUM 7.4 mg/dL (8.5-10.1); CREATININE 0.7 mg/dL (0.6-1.0); MAGNESIUM 1.7 mg/dL (1.8-2.4); PHOSPHORUS 2.9 mg/dL (2.5-4.9); POTASSIUM 3.8 mmol/L (3.5-5.1)
[2019-09-13 07:46] VITALS: BP 124/64
--- NOTE | 2019-09-13 08:30 | NUR ---
ASSUMED CARE AT 1900. PT MORE DROWSY OVERNIGHT, REPORTED CRAMPY/BLOATED PAIN IN ABD, GAVE DOSE OF BENTYL. GOOD URINE OUTPUT FROM EXT CATH. THIS AM PT C/O RESTLESSNESS, GAVE DOSE OF OXY TO HELP CALM DOWN. NO STOOL FROM COLOSTOMY OVERNIGHT, DIMINISHED BOWEL SOUNDS. IV ABX AND TPN INFUSING OVERNIGHT. NO OTHER CONCERNS, SHIFT REPORT GIVEN AT 0700.
--- NOTE | 2019-09-13 16:18 | NUR ---
IDA reviewed chart and spoke with nursing and attending physician. Pt is on TPN and will need TPN for about a week. No weekend discharge planned. IDA updated [facility]. Will need insurance authorization when pt is getting closer to dischage. IDA is following to assist as needed with discharge planning.
[2019-09-13 16:35] VITALS: BP 127/57
[2019-09-13 19:28] VITALS: BP 121/51
[2019-09-14 04:39] VITALS: BP 140/68
[2019-09-14 06:44] LABS: HEMATOCRIT 31.3 % (37.0-47.0); MCH 27.7 pg (26.0-34.0); MCHC 32.1 g/dL (28.0-37.0); MCV 86.1 fL (80.0-100.0); RBC 3.63 mil/uL (4.20-5.00); RDW 15.2 % (10.5-14.5); WBC 15.7 thou/uL (4.0-11.0)
[2019-09-14 07:11] LABS: CALCIUM 7.7 mg/dL (8.5-10.1); CREATININE 0.7 mg/dL (0.6-1.0); MAGNESIUM 1.8 mg/dL (1.8-2.4); PHOSPHORUS 2.9 mg/dL (2.5-4.9); POTASSIUM 4.2 mmol/L (3.5-5.1)
[2019-09-14 07:20] VITALS: BP 117/57
--- NOTE | 2019-09-14 08:50 | NUR ---
ASSUMED CARE AT 1900. PT C/O FEELING RESTLESS; GAVE DOSE OF OXY WHICH HELPS HER RELAX BETTER THAN THE ATIVAN. REPORTS CRAMPY/BLOATING PAIN IN ABD, GAVE BENTYL. SCANT OUTPUT FROM COLOSTOMY. COPIOUS AMOUNTS OF URINE THROUGH THE EXT CATH. HAS SOME YEASTY REDNESS IN GROIN. NO OTHER CONCERNS, SHIFT REPORT GIVEN AT 0700.
[2019-09-14 15:51] VITALS: BP 117/50
--- NOTE | 2019-09-14 19:11 | NUR ---
ASSUMED PATIENT CARE AT 0700. A/0 X4. ON CLEAR LIQUID DIET. ACTIVE BS. NO BM TO COLOSTOMY. ABD PAIN. NO N/V. ON TPN. GERNALIZED EDEMA 3+. SLOWLY TOWARDS POC GOALS.
[2019-09-14 20:05] VITALS: BP 112/52
--- NOTE | 2019-09-14 23:39 | NUR ---
PT WATCHING TV AND TALKING WITH HER SON. PT REPORTED ANXIETY IN THE EVENING AND REQUESTED PRN AND PROVIDED. IV AND TPN INTACT. EXT CATH INTACT. COLOSTOMY INTACT. ABD AND BLE EDEMA PRESENT. MIDLINE INCISION DRY INTACT. R ANNA INTACT, SEROSANG DRAINAGE. PT REPORTS SHE CAN SEE BUT THAT HAS DIFFICULTY READING AND DRIVING, LEGALLY BLIND. BLUNTED AFFECT. R PICC LINE LARGE BRUISE REMAINS AT SITE.
[2019-09-15 05:10] VITALS: BP 110/51
[2019-09-15 08:19] VITALS: BP 130/60
[2019-09-15 16:27] VITALS: BP 122/39
[2019-09-15 20:07] VITALS: BP 121/76
[2019-09-16 03:07] VITALS: BP 110/48
[2019-09-16 05:38] LABS: HEMATOCRIT 30.2 % (37.0-47.0); HEMOGLOBIN 9.8 gm/dL (12.0-15.0); MCH 27.9 pg (26.0-34.0); MCHC 32.3 g/dL (28.0-37.0); MCV 86.2 fL (80.0-100.0); RBC 3.5 mil/uL (4.20-5.00); RDW 15.1 % (10.5-14.5); WBC 16.2 thou/uL (4.0-11.0)
[2019-09-16 06:13] LABS: ALBUMIN 1.7 g/dL (3.4-5.0); CREATININE 0.8 mg/dL (0.6-1.0); MAGNESIUM 1.8 mg/dL (1.8-2.4); PHOSPHORUS 3.2 mg/dL (2.5-4.9); POTASSIUM 4.3 mmol/L (3.5-5.1)
--- NOTE | 2019-09-16 07:42 | NUR ---
ASSUMED PT CARE AT 1900. VSS. PT A&0X4. COMPLAINED OF NAUSEA AFTER SHE GOT HER HS DOSE OF TYLENOL. REGLAN GIVEN. SHE ALSO COMPLAINED OF ACID REFLUX; PROTONIX AND ANTACID GIVEN BUT PT CONTINUES TO EXPRESS DISCOMFORT. PT FINALLY VOMITTED THIS MORNING AROUND 0730: BILE COLOR LIQUID EMESIS. PT GOT UP TO THE CHAIR WITH X2 ASSIT AROUND 2 AM THIS MORNING SHE COMPLAINED ABOUT BEING UNCOMFORTBLE IN BED. PT'S ABD INCISIONS ARE INTACT, 20ML OUT THIS SHIFT FROM RLQ ANNA DRAIN, STOMA RED, SOME SOLID AND LIQUID STOOL NOTED IN COLOSTOMY BAG. PT HAD GREAT URINE OUTPUT OF MORE THAN 40ML/HR THIS SHIFT. FSBS WNL. PT OTHERWISE IS STABLE, WILL CONTINUE TO MONITOR PER POC.
[2019-09-16 07:56] VITALS: BP 131/64
--- NOTE | 2019-09-16 16:38 | NUR ---
IDA reviewed chart and spoke with nursing and attending physician. Pt is slowly progressing towards goals for discharge. Pt remains on TPN and has ANNA drain in place. TPN to be weaned. IDA provided update to [facility] unit coordinator and liaison. [facility] is able to provide TPN if pt needs it when discharged. IDA met with pt and son, Elver, at bedside to provide update. Pt was sleeping during time of SW visit. Pt's son is aware and agreeable with discharge plan. SW is following to assist as needed with discharge planning.
[2019-09-16 19:47] VITALS: BP 114/52
--- NOTE | 2019-09-16 19:48 | NUR ---
NOTED TO BE ANXIOUS THROUGH THE DAY DESPITE PRESENCE OF FAMILY HERE. SHE HAS A SMALL AMOUT OF STOOL IN COLOSTOMY. SHE HAS HAD N/V THROUGH THE MORNING. SEE MEDS ADMINISTERED. SHE IS NOW SLEEPNG. WILL CONT WITH PLAN OF CARE.
[2019-09-17 04:43] VITALS: BP 119/65
--- NOTE | 2019-09-17 05:11 | NUR ---
Pt. c/o being nauseous and threw up about 60 ml of greenish dge. Scheduled reglan and prn zofran given with some relief. Requested anxiety med to help her get through the night. She slept some then requested pain med this am. She has been repositioned for comfort. Kept NPO per order. TPN infusing. Afebrile. Midline incision with anai , well approximated. Right ANNA drain had 30 ml of serous dge. Colostomy had moderate amount of loose brown bm. Female external cath in place. Making progress towards care plan goals.
[2019-09-17 06:34] LABS: HEMOGLOBIN 9.4 gm/dL (12.0-15.0); MCH 27.9 pg (26.0-34.0); MCHC 32.4 g/dL (28.0-37.0); MCV 86.2 fL (80.0-100.0); RBC 3.37 mil/uL (4.20-5.00); RDW 14.8 % (10.5-14.5); WBC 17.1 thou/uL (4.0-11.0)
[2019-09-17 07:01] LABS: ALBUMIN 1.7 g/dL (3.4-5.0); CALCIUM 7.8 mg/dL (8.5-10.1); CREATININE 0.7 mg/dL (0.6-1.0); MAGNESIUM 1.9 mg/dL (1.8-2.4); PHOSPHORUS 3.4 mg/dL (2.5-4.9); POTASSIUM 4.1 mmol/L (3.5-5.1)
[2019-09-17 08:27] VITALS: BP 113/50
--- NOTE | 2019-09-17 09:03 | NUR ---
OSTOMY CARE pouch on 5 days, changed using 2 piece catrina system cut to fit. stoma pink viable budded w/ soft formed brown stool small amt, less abd distension, mid line suture line intact, anai, well approximated, receptive to ostomy education but to low vision unable to apply pouch, encouraged to participate in emptying appliance, supplies and info at bs, secure start kit ordered for pt and will be sent to home, son aware, will cont to follow recommendations; cont w/ 2piece catrina cut to fit appliance, change q3-5days and prn, encourage pt participation in ostomy care staff developer aware
--- NOTE | 2019-09-17 14:49 | NUR ---
IDA reviewed chart and spoke with nursing and attending physician. Pt is progressing towards goals for discharge. TPN is being weaned and pt's diet advanced to clears. IDA [facility] and [facility]. Will need insurance authorization for skilled placement. IDA notified measurement coordinator and liaison at [facility]. IDA is following to assist as needed with discharge planning.
--- NOTE | 2019-09-17 16:28 | NUR ---
Assumed care approx. 0700 this AM. Pt diet changed to clear liquids this morning. Pt tolerated medication intake and one jello, but has refused any further intake up to this point besides water stating she doesn't want to become nauseous. Full liquid diet order placed this afternoon-will assess how she does with dinner tray. Abdominal pain treated with IV dilaudid. No complaints of nausea or vomiting. Incision C/D/I. ANNA drain intact with minimal output. TPN and IV abx infusing per orders. Bath completed this afternoon. Family at bedside to visit. Pt slowly progressing toward plan of care goals.
[2019-09-17 17:01] VITALS: BP 118/50
[2019-09-17 20:30] VITALS: BP 122/58
[2019-09-18 04:40] VITALS: BP 118/65
[2019-09-18 07:08] LABS: CALCIUM 8.3 mg/dL (8.5-10.1); CREATININE 0.8 mg/dL (0.6-1.0); POTASSIUM 4.1 mmol/L (3.5-5.1)
[2019-09-18 07:30] VITALS: BP 123/52
[2019-09-18 11:15] LABS: HEMATOCRIT 29.7 % (37.0-47.0); HEMOGLOBIN 9.9 gm/dL (12.0-15.0); MCH 31.7 pg (26.0-34.0); MCHC 33.3 g/dL (28.0-37.0); RBC 3.12 mil/uL (4.20-5.00); RDW 16.9 % (10.5-14.5); WBC 15.5 thou/uL (4.0-11.0)
[2019-09-18 11:26] LABS: MCV 95.3 fL (80.0-100.0)
[2019-09-18 11:52] VITALS: BP 146/81
--- NOTE | 2019-09-18 12:24 | NUR ---
IDA reviewed chart and spoke with nursing and attending physician. Pt is progressing towards goals for discharge. Pt's diet advanced to full liquids. Pt remains on TPN and has ANNA drains in place. IDA notified that [facility] has received insurance authorization. They can provide TPN for pt if needed when she is discharged. IDA met with pt's son to provide update. Pt's son is agreeable with discharge plan. IDA updated attending physician. Awaiting input regarding discharge timeframe. IDA is following to assist as needed with discharge planning.
[2019-09-18 15:58] VITALS: BP 108/55
[2019-09-18 20:10] VITALS: BP 134/60
--- NOTE | 2019-09-18 20:12 | NUR ---
Assumed care approx. 0700 this AM. Pt ALOx4, anxious much of the day. IV PRN ativan given per orders. CT of abdomen with oral contrast ordered. Pt was only able to complete one bottle of contrast. Per KEIKO Luz (GI), okay to only give one bottle of contrast before scan. Results communicated to Dr. Stone. Order to straight cath patient per Dr. Núñez for UA. Urine sample obtained and 1000 ml of urine out post straight cath. TPN infusing per orders. PICC line intact. Female external cath in place. Small output noted from colostomy. Pt working on tolerating liquids. Family at bedside most of the shift. Family continuously updated on results. Pt slightly & slowly progressing toward plan of care goals.
[2019-09-18 23:24] LABS: URINE BILIRUBIN NEGATIVE (Negative); URINE BLOOD NEGATIVE (Negative); URINE CLARITY CLEAR; URINE COLOR YELLOW; URINE GLUCOSE-RANDOM* NEGATIVE (Negative); URINE KETONES NEGATIVE (Negative); URINE LEUKOCYTES-REFLEX 2+ (Negative); URINE NITRITE-REFLEX NEGATIVE (Negative); URINE PROTEIN (DIPSTICK) NEGATIVE (Negative); URINE UROBILINOGEN 0.2 E.U./dl (0.2-1.0)
[2019-09-18 23:33] LABS: BACTERIA-REFLEX 1-9 Few /HPF (None Seen); CASTS None Seen /LPF (None Seen); CRYSTALS None Seen /LPF (None Seen); SQUAMOUS 0-3 Few /LPF (0-3); URINE RBC None Seen /HPF (0-2); URINE WBC-REFLEX 6-15 Few /HPF (0-5); YEAST-REFLEX Present (None Seen)
[2019-09-19 07:49] VITALS: BP 113/72
--- NOTE | 2019-09-19 08:47 | NUR ---
PT MAKING SLOW PROGRESS TOWARDS GOALS. DISCUSSED WITH FAMILY BRIEFLY LAST NIGHT THE USE OF "prn" ANXIETY MEDICATIONS. DID GIVEN ATIVAN AT BEDTIME PER PT REQUEST FOR ANXIETY. ALSO OBTAINED ORDER FOR REQUIP AT PT COMPLAINED OF "RESTLESS LEGS." THIS AM PT STATED THAT HER RESTLESS LEGS COMPLAINT HAD IMPROVED OVERNIGHT.
[2019-09-19 11:25] VITALS: BP 112/52
--- NOTE | 2019-09-19 15:46 | NUR ---
IDA reviewed chart and spoke with nursing and attending physician. Pt is progressing towards goals for discharge. Plan for pt to be weaned off TPN tomorrow. IDA updated director of admissions and liaison at [facility]. Insurance authorization has been obtained. [facility] have a bed for pt tomorrow. IDA is following to assist as needed with discharge planning.
[2019-09-19 15:49] VITALS: BP 122/79
--- NOTE | 2019-09-19 16:40 | NUR ---
Assumed care approx. 0700 this AM. Pt encouraged to eat and drink more fluids today by physicians and nursing staff. Patient given zofran once for nausea, but no vomiting episodes. Dr. Huston stated he wants to keep anai in for about another week, and wants the TPN to remain infusing until he is confident that the patient is eating well orally. Pt has been complaining about dry eye discomfort. Family called patient's eye doctor and two new OTC meds with directions from the physician were recommended. Dr. Stone approved of the two new home meds to be given. Family brought in the bottles and they were sent to pharmacy. Family in the room and continuously updated on patient's status at bedside. Pt is noted to have moderate output in colostomy bag. Dr. Huston and GI aware. 200 ml out of ostomy this shift. Will continue to monitor. Pt progressing toward plan of care goals.
[2019-09-19 20:15] VITALS: BP 120/59
--- NOTE | 2019-09-20 00:36 | NUR ---
PT RESTING IN BED AT BEGINNING OF SHIFT, SHE HAD PRN FOR ANXIETY. PTS DAUGHTER VISITED AT BEGINNING OF SHIFT,PT WAS SLEEPING. DIFFERENT DAUGHTER SPENT THE NIGHT. TPN, IV ANTIBIOTICS CONTINUE. PT REFUSED HOME EYE MED AT [facility] AND [facility], PT REFUSED MIRALAX REPORTING IT GIVES HER GAS. PT REFUSED [place] TYLENOL STATING IT WOULD MAKE HER NAUSEAUS. BLE EDEMA REMAINS. COLOSTOMY INTACT AND DRAINING, FEMALE EXT CATH INTACT. PT PARTICIPATING IN REPOSITIONING. FLAT AFFECT, POOR EYE CONTACT SOFT SPEAKING TONE. . PT REPORTS ANXIETY AND NEEDING HER MEDICINE TO SLEEP. MIDLINE VALDEZ REMAIN. ANNA INTACT.
[2019-09-20 03:57] LABS: CALCIUM 7.4 mg/dL (8.5-10.1); CREATININE 0.7 mg/dL (0.6-1.0); MAGNESIUM 1.8 mg/dL (1.8-2.4); PHOSPHORUS 3.1 mg/dL (2.5-4.9); POTASSIUM 4.2 mmol/L (3.5-5.1)
--- NOTE | 2019-09-20 09:29 | NUR ---
OSTOMY CARE pouch on 4 days, loose and soft brown formed stool noted, daughter at bs, pouch changed using catrina 2 piece system w/ adapt ring, peristomal skin intact, stoma pink viable slightly budded, both pt and daughter receptive to ostomy education, encouraged pt to participate in care, due to low vision pt unable to cut wafer but should be able to empty appliance, supplies and info at bs, [facility] covering next week for this woc nurse if needed RECOMMENDATIONS cont education ostomy care, change appliance q3-5days, encouraged pt participation in ostomy care
--- NOTE | 2019-09-20 12:56 | NUR ---
SW reviewed chart and spoke with nursing and attending physician. Pt is progressing towards goals for discharge. No weekend discharge plan. Discharge to [facility] is anticipated for early next week. SW notified assistant director of admissions and liaison at [facility]. [facility] will need to get a new insurance authorization. IDA is following to assist as needed with discharge planning.
[2019-09-20 16:12] VITALS: BP 92/58
[2019-09-20 19:33] VITALS: BP 107/47
--- NOTE | 2019-09-20 19:35 | NUR ---
PATIENT NOTED TO BE ANXIOUS THIS AFTERNOON. PRN LORAZEPAM ADMININSTERE ALONG WIHT PAIN MEDICATION. THEY WERE EFFECTIVE. SHE HAD OUPUT OF DARK BROUSN STOOLS IN THE COLOSTOMY. NOW SLEEPING.
--- NOTE | 2019-09-20 23:01 | NUR ---
PT ASLEEP IN BED UPON ARRIVAL TO SHIFT. IVF, TPN INTACT, COLOSTOMY AND ANNA INTACT. MIDLINE ABD SITE ANTIQUER. FEMALE EXT CATHETER INTACT. BLE EDEMA +2 REMAINS. PT AWAKENED FOR MEDS AND THEN RETURNED TO SLEEPING. NO C/O ANXIETY OR PAIN. DAUGHTER AT BEDSIDE. PT REPOSITIONING SELF IN BED. PT DELCINED HS MIRALAX. ALARM ON.
[2019-09-21 05:18] VITALS: BP 115/53
[2019-09-21 06:23] LABS: HEMATOCRIT 26.3 % (37.0-47.0); HEMOGLOBIN 8.6 gm/dL (12.0-15.0); MCH 28.2 pg (26.0-34.0); MCHC 32.6 g/dL (28.0-37.0); RBC 3.05 mil/uL (4.20-5.00); RDW 15.1 % (10.5-14.5); WBC 11.9 thou/uL (4.0-11.0)
[2019-09-21 06:26] LABS: MCV 86.5 fL (80.0-100.0)
[2019-09-21 06:45] LABS: CALCIUM 8.4 mg/dL (8.5-10.1); CREATININE 0.8 mg/dL (0.6-1.0); POTASSIUM 3.7 mmol/L (3.5-5.1)
[2019-09-21 06:55] VITALS: BP 110/53
[2019-09-21 16:45] VITALS: BP 100/56
[2019-09-21 20:18] VITALS: BP 101/49
--- NOTE | 2019-09-22 04:06 | NUR ---
PATIENT ASSESSED AND IS ALERT X 4. SKIN WARM AND DRY. RESP EVEN AND UNLABORED. TELE- SHOWS NSR. DENIES ANY CHEST PAIN. TAKING DIET WELL. SPRITE GIVEN WITH SOME RELIEF. GIVING SOME GAS RELIEF. PUREWICK INTACT AND CONNECTED TO SUCTION HAS GOOD URINE AMOUNT. SOME EDEMA NOTED TO LOWER EXTREMITIES. COLOSTOMY INTACT WITH LIQUID STOOL NOTED. RIGHT ANNA DRAIN INTACT WITH SOME DRAINAGE NOTED BUT SCANT AMOUNT. TURNS SELF IN BED. BEAR WEIGHTS WITH PT. IS DONE AT BEDSIDE. IS LEGALLY BLIND. HAS A POOR APPETITE. ON ROOM AIR. MTPN AT 50 CC/HOUR. VOLTAREN GIVEN TO BILATERAL KNEES FOR PAIN. REFUSED HER SYSTONE EYE GEL AT HS. LOREZEPAM GIVEN FOR ANXIETY AT HS. DAUGFHGTER AT BEDSIDE. TAKES TYLENOL FOR GENERALIZED PAIN.CONT PLAN OF CARE.
[2019-09-22 04:55] VITALS: BP 116/51
[2019-09-22 07:44] VITALS: BP 103/48
[2019-09-22 08:57] LABS: HEMOGLOBIN 8.1 gm/dL (12.0-15.0); MCH 27.8 pg (26.0-34.0); MCHC 32.5 g/dL (28.0-37.0); MCV 85.7 fL (80.0-100.0); RBC 2.92 mil/uL (4.20-5.00); RDW 14.9 % (10.5-14.5); WBC 11.5 thou/uL (4.0-11.0)
[2019-09-22 09:13] LABS: CALCIUM 8.2 mg/dL (8.5-10.1); CREATININE 0.9 mg/dL (0.6-1.0); PHOSPHORUS 2.9 mg/dL (2.5-4.9); POTASSIUM 3.4 mmol/L (3.5-5.1)
[2019-09-22 15:18] VITALS: BP 109/52
[2019-09-22 20:39] VITALS: BP 109/50
--- NOTE | 2019-09-22 21:46 | NUR ---
PT RESTING IN BED. PT HAD BEEN UP IN CHAIR. PT HAS EXTERNAL FEMALE CATHETER, ANNA AND COLOSTOMY INTACT. MIDLINE ABD VALDEZ INTACT, RPICC. TPN RUNNING. PT DOES NOT HAVE FAMILY IN ROOM. PT NOT VERBALIZING PAIN OR ANXIETY. BLE EDEMA +3. PT VERBALIZED VOLTAREN OINTMENT IS EFFECTIVE FOR RELIEF OF KNEE PAIN. PT STATED SHE DOES NOT KNOW WHAT SHE IS GOING TO DO ALL NIGHT AND ASKED NURSE TO HAVE STAFF COME AND VISIT AND TALK WITH HER. POSSIBLE DC IN AM.
[2019-09-23 04:55] VITALS: BP 116/52
[2019-09-23 06:14] LABS: HEMATOCRIT 24.3 % (37.0-47.0); MCH 28.3 pg (26.0-34.0); MCHC 32.9 g/dL (28.0-37.0); MCV 86.2 fL (80.0-100.0); RBC 2.82 mil/uL (4.20-5.00); RDW 14.7 % (10.5-14.5); WBC 10.2 thou/uL (4.0-11.0)
[2019-09-23 06:38] LABS: CALCIUM 8.4 mg/dL (8.5-10.1); CREATININE 0.8 mg/dL (0.6-1.0); MAGNESIUM 1.8 mg/dL (1.8-2.4); POTASSIUM 3.7 mmol/L (3.5-5.1)
[2019-09-23 07:15] VITALS: BP 123/59
[2019-09-23] MEDS ORDERED: OXYCODONE HCL 55 MG PO (07:50)
[2019-09-23] MEDS ORDERED: REQUIP 1 MG TABL1 M1 PO (07:51)
[2019-09-23] MEDS ORDERED: NEURONTIN 300300 M1 PO (07:51)
[2019-09-23 08:28] VITALS: BP 123/59
--- NOTE | 2019-09-23 10:32 | NUR ---
DISCHARGE ORDERS COMPLETED AND FAXED TO [facility] [place] ADMISSIONS. VERIFIED ORDERS RECEIVED. TPN TO BE DISCONTINUED TODAY AT NOON PER UNIT RN. TRANPORTATION ARRANGED PER [facility], 1400 HOURS. [facility] [employer] NOTIFIED OF TRANSPORTATION TIME. CHART COPY COMPLETED PER UNIR FRAMER. CONTACT NUMBER FOR REPORT PROVIDED. [phone]. [facility] NOTIFIED OF DISCHARGE PLAN AND TIME OF TRANSPOTATION. UNIT SW AWARE.
--- NOTE | 2019-09-23 12:58 | NUR ---
ANNA DRAIN DISCONTINUED AND REMOVED PER MD CRONIN ORDER. NO BLEEDING AT SITE. DRESSING DRY, CLEAN AND INTACT
--- NOTE | 2019-09-23 13:19 | NUR ---
0700 PT CARE ASSUMED AT 0700, PT ALEET AND ORIENTED X4, DENIES ANY PAIN. ASSESSMENT COMPLETED. DENIES ANY NEEDS AT THE MOMENT 1000 PT FAMILY VISITNG, QUESTIONS ANSWERED 1300 PT DISCHARGE MEDICATION EDUCATION DONE WITH PT AND FAMILY. PT AND FAMILY DENIES ANY OTHER NEEDS.
--- NOTE | 2019-09-23 14:32 | NUR ---
1432 PT DISCHAGE, PT HOMES MEDS AND BELONGINGS PACKED AND GIVEN TO PT. EMS GIVEN PT ENVOLOPE. PT LEFT VIA WHEELCHAIR.
--- NOTE | 2019-09-23 14:37 | NUR ---
DISCHARGE NOTE: SW reviewed chart and spoke with nursing and attending physician. Pt is medically stable for discharge to [facility] today. [facility] has insurance authorization and can accept pt today. TPN to be stopped today. Wheelchair van transportation is scheduled for 1400 today per facility's arrangements. IDA met with pt and son at bedside to discuss discharge plan. Both are aware and agreeable with discharge plan. shoe lay out planner faxed discharge orders/summary to the facility and notified pt's son, Elver, via phone. Chart copy requested. Nursing provided with number to call report. No additional SW needs identified at this time, but is available to assist should needs arise.
--- NOTE | 2019-09-23 14:40 | NUR ---
Report given to DANNY Stratton at [facility].
== END 2019-09-23 15:18 | DRG 853 ==
LOC: ER 12:43 → 4N 18:24 → EROBS 18:24 → 4N 20:34 → 3W 09-06 18:26
PROVIDERS: Hospitalist; Internal Medicine; Nurse Practitioner; Physician Assistant; Specialist; Surgery; ADMIT Family Medicine
PROC: 0D1M0Z4 Bypass Descending Colon to Cutaneous, Open Approach (ICD-10-PCS; principal; 2019-09-06)
PROC: 0UT00ZZ Resection of Right Ovary, Open Approach (ICD-10-PCS; principal; 2019-09-06)
PROC: 0DBN0ZZ Excision of Sigmoid Colon, Open Approach (ICD-10-PCS; principal; 2019-09-06)
DX: A41.9 Sepsis, unspecified organism (principal); E43 Unspecified severe protein-calorie malnutrition; K65.9 Peritonitis, unspecified; R18.8 Other ascites; K56.7 Ileus, unspecified; D62 Acute posthemorrhagic anemia; N39.0 Urinary tract infection, site not specified; K57.20 Diverticulitis of large intestine with perforation and abscess without bleeding; K59.00 Constipation, unspecified; K21.9 Gastro-esophageal reflux disease without esophagitis; E03.9 Hypothyroidism, unspecified; E78.5 Hyperlipidemia, unspecified; K63.89 Other specified diseases of intestine; R19.7 Diarrhea, unspecified; K66.8 Other specified disorders of peritoneum; E66.01 Morbid (severe) obesity due to excess calories; I50.9 Heart failure, unspecified; I11.0 Hypertensive heart disease with heart failure; Z80.1 Family history of malignant neoplasm of trachea, bronchus and lung; Z90.89 Acquired absence of other organs; Z98.42 Cataract extraction status, left eye; Z68.35 Body mass index [BMI] 35.0-35.9, adult; Z98.41 Cataract extraction status, right eye; Z79.2 Long term (current) use of antibiotics; Z79.891 Long term (current) use of opiate analgesic; Z79.899 Other long term (current) drug therapy; Z88.0 Allergy status to penicillin; Z88.8 Allergy status to other drugs, medicaments and biological substances; Z87.891 Personal history of nicotine dependence; Z91.041 Radiographic dye allergy status; Z80.0 Family history of malignant neoplasm of digestive organs
CPT/HCPCS: 10790; 10879; 27000; 50010; 50093; 50101; 50290; 50291; 50331; 50386; 50455; 51412; 51712; 56525; 56528; 57092; 57103; 57108; 62110; 62900; 64039; 65130; 70005

== ENCOUNTER → 2021-04-26 | Outpatient (CLI) | payer OTHER ==
[~2021-04-26] MED LIST changes: +AZELASTINE205.5 MCG/ NARES; +LEVO-T100 MCG PO; +MIRALAX17 GM PO; +NEURONTIN 300300 M1 PO; +OXYCODONE HCL 55 MG PO; +REQUIP 1 MG TABL1 M1 PO; +SENNA PLUS TAB1 EACH PO; +SPIRONOLACTONE25 MG PO; +TIMOLOL MALEATE5 M2 OPHTHALMIC
== END ==
LOC: ULTRA 12:32
PROVIDERS: ATTEND Family Medicine
DX: R10.9 Unspecified abdominal pain (principal)

== ENCOUNTER → 2021-05-19 | Outpatient (CLI) | payer OTHER ==
[~2021-05-19] VITALS: Ht 157.5 cm; Wt 68.0 kg
[~2021-05-19] MED LIST changes: +ASA81BEC PO; +COLACE 100 MG100 MG PO; +DESYREL150 MG PO; +FERRETTS325 MG PO; +LEVOTHYROXINE150 MC1 PO; +NASACORT10.8 ML NASAL; +NEURONTIN300 MG PO; +OMEPRAZOLE 20 M20 M1 PO; +ONDANSETRON HCL4 M2 PO; +PEPCID20 MG PO; +SIMETHICONE125 M1 PO
--- NOTE | 2021-05-21 08:20 | P ---
[facility] [place] [address] PROCEDURE REPORT Name: JAMMIE HERRERA Room #: [id number] Admission: 05/19/21 Attend Phys: Alin Thompson Discharge: Date of : 35 Report #: [id number] THIS REPORT FOR: cc: Humza Stone MD, Neal A. MD McElhinney, Christian C. MD ~ DATE OF SERVICE: 05/19/2021 PROCEDURE PERFORMED: Colonoscopy. 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 She has been doing well since the surgery, she is considering reanastomosis surgery. Her last colonoscopy was approximately 10 years ago in which multiple diverticula were noted. No family history of colon cancer. DESCRIPTION OF PROCEDURE: The risks and benefits of the procedure were explained to the patient, those risks including but not limited to bleeding for perforation and the risk of sedation. She understood these risks and gave informed consent. Sedation was given using propofol per Anesthesia. Next, using a standard Olympus colonoscope, the scope was placed in the patient's colostomy and advanced under direct vision to the cecum. The overall prep was excellent. The cecum and ileocecal valve were normal in appearance. Ascending colon was normal. Most of the transverse colon was normal. A few small scattered diverticula were noted. The remaining descending colon showed a few small scattered diverticula as well. No evidence of inflammation. The scope was then withdrawn from the colostomy. The patient was then turned on her left lateral side. A digital rectal exam showed several large hard mucus/fecal balls within the rectum, I was able to remove these digitally. Next, using the Olympus colonoscope, the scope was placed in the patient's anus and advanced under direct vision into the distal sigmoid colon. Several other mucus/fecal balls were noted in the distal sigmoid colon, which did limit visualization; however, the area was normal other than a few diverticula. The rectal mucosa was normal other than some mild diverting colitis. The scope was then withdrawn and the procedure terminated. The patient tolerated the procedure well. IMPRESSION: 1. Diverticulosis involving remaining descending colon and distal sigmoid colon. No evidence of inflammation. 2. Colostomy noted as above. RECOMMENDATIONS: Okay to proceed with reanastomosis surgery in the future. [address] [address] PROCEDURE REPORT Name: JAMMIE HERRERA Room #: REG CL Erik#: [id number] Admission: 05/19/21 Attend Phys: Alin Thompson Discharge: Date of : 35 Report #: [id number] Thank you for allowing me to participate in her care. <ELECTRONICALLY SIGNED> By: Alin Garcia MD 05/21/21 0820 [id number] Alin Garcia MD /tootie
== END | disposition home or self-care (01) ==
LOC: GI 07:29
PROVIDERS: ATTEND Specialist
DX: K57.30 Diverticulosis of large intestine without perforation or abscess without bleeding (principal); Z93.3 Colostomy status; K21.9 Gastro-esophageal reflux disease without esophagitis; I10 Essential (primary) hypertension; E03.9 Hypothyroidism, unspecified; E78.00 Pure hypercholesterolemia, unspecified; Z98.890 Other specified postprocedural states; Z79.899 Other long term (current) drug therapy; Z87.891 Personal history of nicotine dependence; Z96.652 Presence of left artificial knee joint; Z90.49 Acquired absence of other specified parts of digestive tract; Z88.0 Allergy status to penicillin; Z91.041 Radiographic dye allergy status; Z88.8 Allergy status to other drugs, medicaments and biological substances
CPT/HCPCS: 62110; 62900

== ENCOUNTER → 2021-09-23 | Outpatient (CLI) | payer OTHER ==
[~2021-09-23] VITALS: Ht 157.5 cm; Wt 72.6 kg
[~2021-09-23] MED LIST changes: +MYRBETRIQ25 MG PO; +NASACORT10.8 ML NARES
[2021-09-23 14:23] VITALS: BP 134/55
--- NOTE | 2021-09-23 15:26 | NUR ---
Pain Clinic Assessment: 1. History of Osteoarthritis: Not Applicable History of Rheumatoid Arthritis: Not Applicable 2. Height: 5 ft. 2 in. 157.5 cm. Weight: 160.0 lb. oz. 72.576 kg. Patient's BMI: 29.3 3. Vital Signs: BP: 134/55 Pulse: 60 Resp: 20 Temp: 02 Sat: 97 ECG Mon: 4. Pain Intensity: 5-6 5. Fall Risk: Dizziness: N Needs help standing or walking: Y Fallen in the last 3 months: N Fall risk comments: 6. Patient on Blood Thinner: None 7. History of Hypertension: Y 8. Opioid Therapy greater than 6 weeks: N Opiate Contract Signed: 9. Risk Assessment Tool Provided: LOW RISK 0-3 10. Functional Assessment Tool: 11. Recreational Drug Use: Never Drug Type: Tobacco Use: Never Smoker Tobacco Type: Amount or Packs/day: How Many Years: Alcohol Use: No Frequency: Quant:
== END ==
LOC: PAIN 12:54
PROVIDERS: ATTEND Anesthesiology Pain Medicine
DX: M47.816 Spondylosis without myelopathy or radiculopathy, lumbar region (principal); M48.061 Spinal stenosis, lumbar region without neurogenic claudication; Z79.899 Other long term (current) drug therapy; Z88.8 Allergy status to other drugs, medicaments and biological substances; Z88.0 Allergy status to penicillin